=== PATIENT | male | born 1980 | race Caucasian/White ===

== ENCOUNTER 2021-12-11 03:10 | Emergency (ER) | payer OTHER ==
[~2021-12-11] VITALS: Ht 177.8 cm; Wt 83.9 kg
[2021-12-11 03:30] VITALS: BP 148/94
[2021-12-11] MEDS ORDERED: IBUPROFEN 800 MG TAB PO ONE (03:45)
[2021-12-11] MEDS ORDERED: IBUP-2218 PO (04:51)
[2021-12-11] MEDS ORDERED: IBUPROFEN 800 MG TAB ONE (04:53)
--- NOTE | 2021-12-11 05:30 | NUR ---
PT DISCHARGED WITH LINDA. SHANI TO BOOK
== END 2021-12-11 05:30 ==
LOC: MED 03:10
DX: S93.401A Sprain of unspecified ligament of right ankle, initial encounter (principal); F10.129 Alcohol abuse with intoxication, unspecified; Z02.89 Encounter for other administrative examinations; V98.8XXA Other specified transport accidents, initial encounter; Y93.89 Activity, other specified; Y92.89 Other specified places as the place of occurrence of the external cause; Y99.8 Other external cause status
CPT/HCPCS: 29515; 73610; 99283